=== PATIENT | male | born 1950 | race Caucasian/White ===

== ENCOUNTER 2016-10-22 16:57 | Emergency (ER) | payer MEDICARE, OTHER ==
--- NOTE | 2016-10-23 15:54 | ER ---
ADMIT: 10/22/2016 RM/LOC: ER [facility] MR#: [id number] [id number] [place] [address] Emergency Room Report SEX: M AGE: 66 : 1950 DATE: 10/22/2016 This 66-year-old, [facility], became lightheaded, grabbed ahold of a sign to steady himself. Caused some superficial lacerations of his right fingers. See T-sheet for remainder of history and physical. While he was here, he had very vague, nonspecific complaints of questionable chest and back pain, therefore cardiac workup was initiated, results of which were unremarkable. The patient was subsequently discharged in satisfactory condition. DIAGNOSIS: Lacerations requiring no repair. Instructed to follow up with the [place] doctor this coming week. Edison Tejeda MD/ hilario JOB #: [id number] CC: Marcellus Camacho MD, Attending Physician [facility] Physician, Family Physician
== END 2016-10-22 18:25 | disposition home or self-care (01) ==
LOC: ER 16:57
DX: S61.210A Laceration without foreign body of right index finger without damage to nail, initial encounter (principal); S61.216A Laceration without foreign body of right little finger without damage to nail, initial encounter; S61.212A Laceration without foreign body of right middle finger without damage to nail, initial encounter; S61.214A Laceration without foreign body of right ring finger without damage to nail, initial encounter; I10 Essential (primary) hypertension; Z23 Encounter for immunization; Z79.899 Other long term (current) drug therapy; X58.XXXA Exposure to other specified factors, initial encounter